=== PATIENT | male | born 1970 | race Caucasian/White ===

== ENCOUNTER 2021-04-29 10:32 | Emergency (ER) | payer OTHER, SELFPAY ==
[2021-04-29 12:31] VITALS: BP 144/94; PULSE 93; RESP 18; TEMP 36.7; O2SAT 98
--- NOTE | 2021-04-29 12:51 | ED.URI ---
HPI - URI/Sore Throat General Chief Complaint: Upper Respiratory Infection Stated Complaint: Sore Throat,Body Aches,Runny Nose Time Seen by Provider: 04/29/21 12:52 Source: patient Mode of arrival: ambulatory Limitations: no limitations History of Present Illness HPI Narrative: Katherin is a 51-year-old male patient who has a 4-day history of sore throat and swollen lymph nodes. Patient does have a history of strep. Last strep diagnosis was 2 years ago. Patient has had a negative rapid Covid this week he has also had a negative Covid PCR. Patient states the sore throat is worse in the morning. He also complains of body aches. MD elicited complaint: sore throat Related Data Allergies Allergy/AdvReac Type Severity Reaction Status Date / Time No Known Allergies Allergy Verified 04/29/21 12:57 Review of Systems Review of Systems: CONSTITUTIONAL: + body aches, denies fever, chills, or sweats. EYES: Denies visual changes, redness, or discharge. ENT: Denies rhinorrhea, congestion,+ sore throat, denies otalgia. CARDIOVASCULAR: Denies chest pain, palpitations, or edema. RESPIRATORY: Denies cough or dyspnea. GASTROINTESTINAL: Denies abdominal pain, nausea, vomiting, or diarrhea. GENITOURINARY: Denies dysuria or hematuria. SKIN: Denies rash, itching, or wounds. MUSCULOSKELETAL: Denies back pain, joint pain, or myalgia. NEUROLOGIC: Denies headache, numbness, tingling, or weakness. PSYCH: Denies depression or anxiety. All systems reviewed & are unremarkable except as noted in HPI and below PMFSH Comments At time of signature, I have reviewed and agree with nursing past medical, surgical, social and family history unless otherwise noted. Please see nursing chart for further information. There is no relevant family history pertinent to the presenting complaint Exam Narrative: GENERAL: Well-appearing, well-nourished, and in no acute distress. HEAD: Normocephalic, atraumatic. EYES: EOMI. No redness or drainage. Conjunctivae normal. ENT: Mucous membranes pink and moist. Nares clear. No rhinorrhea. TMs normal bilaterally. Posterior pharynx is erythemic with moderate edema tonsils are 3-4+. No exudate is noted throat normal. Uvula midline. NECK: Normal AROM. Supple. Anterior cervical lymphadenopathy. CHEST: No respiratory distress. Clear to auscultation. . ABDOMEN: Soft, nontender, nondistended, normal active bowel sounds. MUSCULOSKELETAL: No bony tenderness. EXTREMITIES: Normal range of motion. No edema. SKIN: Warm, dry, no rash. Capillary refill normal. Normal skin turgor. NEURO: No focal deficits. Alert and oriented x3. Gait steady. PSYCH: Normal affect. No signs of depression or anxiety. Course Vital Signs Vital signs: Vital Signs Temperature 36.7 C 04/29/21 12:31 Pulse Rate 93 04/29/21 12:31 Respiratory Rate 18 04/29/21 12:31 Blood Pressure 144/94 H 04/29/21 12:31 Pulse Oximetry 98 04/29/21 12:31 Temperature 36.7 C 04/29/21 12:31 Pulse Rate 93 04/29/21 12:31 Respiratory Rate 18 04/29/21 12:31 Blood Pressure 144/94 H 04/29/21 12:31 Pulse Oximetry 98 04/29/21 12:31 At time of signature, I have reviewed and agree with nursing past medical, surgical, social and family history unless otherwise noted. Please see nursing chart for further information. There is no relevant family history pertinent to the presenting complaint MDM - URI/Sore Throat MDM Narrative Medical decision making narrative: Rapid strep is negative. Throat culture will be sent to lab. Influenza A/B are negative. Differential Diagnosis Differential diagnosis: Likely upper respiratory infection, sinusitis, influenza and pharyngitis Lab Data Labs: Influenza A Screen Negative Reference Range: Negative Influenza B Screen Negative Reference Range: Negative Strep Screen Presump
== END 2021-04-29 13:33 | disposition home or self-care (01) ==
PROVIDERS: Emergency Provider Nurse Practitioner Family; PCP Family Medicine
DX: J02.9 Acute pharyngitis, unspecified (principal)
CPT/HCPCS: 87081; 87804; 87880; 99213; G0463

== ENCOUNTER 2025-01-08 16:14 | Emergency (ER) | payer OTHER, SELFPAY ==
--- OUTSIDE RECORDS SUMMARY | 2024-04-12 16:30 | XMS_ITS ---
Author Organization [facility] Address [address] [id number] Care Team Providers Care Heater Installer Name Role Phone Curtis Rogers Primary Care Provider Timothy Christianson Unavailable [phone] Migration, Provider Unavailable Unavailable REASON FOR VISIT Multum To Medispan Conversion Encounter Medications Medication SIG (Take, Route, Frequency, Duration) Notes Start Date End Date Status DermOtic 0.01 % 5 gtt left ear 2 times a day; Duration: 10 days 02/14/2021 Active Hydrocortisone-Acet ic Acid 1-2 % 4 gtt left ear tid; Duration: 10 days 02/14/2021 Active DECADRON OPTHALMIC SOLUTION 0.1% 5 GTTS LEFT EAR ONCE A DAY; Duration: 10 DAYS *Please review for potential replacement for e-prescription and drug interaction check* 02/14/2021 Active Encounters Encounter Location Date Provider Diagnosis [facility] [address] [id number] 04/12/2024 Provider Migration Plan Of Treatment No Information Progress Notes * Stephane ACOSTA LDOB:1970 (54 yo M)Acc No.[id number]:04/12/2024 Patient: Stephane WOODRUFF Provider: Jose M taylor Migration :1970 A ge:54 Y S ex:Male Date:04/12/2024 [facility] [facility] [address] [facility] Pcp:Curtis Rogers Subjective: * Chief Complaints: * 1 . Multum To Medispan Conversion Encounter. * Medical History: * Medications: T aking DECADRON OPTHALMIC SOLUTION 0.1% SOLUTION 5 GTTS LEFT EAR ONCE A DAY , Notes to Pharmacist: *Please review for potential replacement for e-prescription and drug interaction check*, Taking Hydrocortisone-Acetic Acid 1-2 % Solution 4 gtt left ear tid , Taking DermOtic 0.01 % Oil 5 gtt left ear 2 times a day Objective: * Vitals: * Physical Examination: Assessment: Plan: * Treatment: * Images: * Electronic signature of Jose C fernández Migration on 01/08/2025 at 04:53 PM CDT Sign off status: Pending * Provider: Jose M taylor Migration Date: 1 06/13/2023 Generated for Carlota phillips/Светлана/George on: 0 01/08/2025 04:53 PM CDT
[2025-01-08] VITALS (7 sets, daily range): BP systolic 109–146; BP diastolic 78–110; PULSE 81–103; RESP 16–20; TEMP 36.5–36.7; O2SAT 95–99
--- NOTE | ~2025-01-08 | XR_ITS ---
EXAMINATION: XR chest 2V 01/08/2025 16:56 INDICATION: Shortness of breath TECHNIQUE:Frontal and lateral images of the chest were obtained. COMPARISON: 08/22/2017 FINDINGS: The lungs are clear. The cardiomediastinal silhouette is within normal limits. There are no pleural effusions. There is no pneumothorax suspected. IMPRESSION: 1: NO ACUTE CARDIOPULMONARY DISEASE. Reviewed, dictated and finalized at location Q.
--- NOTE | 2025-01-08 16:45 | ECG_ITS ---
Test Date: 2025-01-08 17:12:44 Measurements Intervals [place] Rate: 95 P: 48 IA: 185 QRS: -44 QRSD: 97 T: 59 QT: 339 QTc: 427 Interpretive Statements SINUS RHYTHM POSSIBLE LEFT ATRIAL ENLARGEMENT [-0.1mV P-WAVE IN V1/V2] LEFT AXIS DEVIATION [QRS AXIS < -30] PROBABLE INFERIOR MYOCARDIAL INFARCTION , OF INDETERMINATE AGE [35 ms Q WAVE IN II/aVF] No previous ECG available for comparison Electronically Signed On 01-09-2025 15:14:36 CDT by Sundar Moses M.D.
--- OUTSIDE RECORDS SUMMARY | 2025-01-08 16:54 | XMS_ITS | Encounter Summary ---
Author Organization [facility] Healthcare Address [address] [place] [address] Care Team Providers Care Forging Engineer Name Role Phone Curtis Rogers DO Primary Care Provider [phone] Trey Birggs DO Unavailable Cipriano Raygoza MD Unavailable [phone] Encounter Details Date Type Department Care Team (Late st Contact Info) Description 12/15/2024 Results Follow-Up [facility] Pulmonary at [address] [place] [address] Casimiro Wilson DO [address] [place] [address] [address] [place] [address] CT Chest High Resolution WO Contrast Social History Tobacco Use Types Packs/Day Years Used Date Smoking Tobacco: Never Smokeless Tobacco: Never Alcohol Use Standard Drinks/Week Comments Never 0 (1 standard drink = 0.6 oz pur e alcohol) AUDIT-C Answer Date Recorded Frequency of Alcohol Consumption Not on file 12/09/2024 Q2: How many drinks containi ng alcohol do you have on a typical day when you are drinking? 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
--- OUTSIDE RECORDS SUMMARY | 2025-01-08 16:54 | XMS_ITS | Encounter Summary ---
Author Organization [facility] Healthcare Address [address] [place] [address] Care Team Providers Care Spooler Operator Name Role Phone Curtis Rogers DO Primary Care Provider [phone] Trey Briggs DO Unavailable [phone] Cipriano Raygoza MD Unavailable [phone] Encounter Details Date Type Department Care Team (Late st Contact Info) Description 11/11/2024 Results Follow-Up [facility] Medical [facility] Pulmonary at [address] [place] [address] Casimiro Wilson DO [address] [place] [address] [address] [place] [address] D-dimer, quantitative, Pro B-type natriuretic peptide, Basic metabolic panel, Additional followed-up results: 4 Social History Tobacco Use Types Packs/Day Years Used Date Smoking Tobacco: Never Smokeless Tobacco: Never Alcohol Use Standard Drinks/Week Comments Never 0 (1 standard drink = 0.6 oz pur e alcohol) AUDIT-C Answer Date Recorded Frequency of Alcohol Consumption Never 09/06/2018 Average Number of Drinks Not on file 019 Frequency of Binge Drinking Not on file 08/28 Sex and Gender Information Value Date Recorded Sex Assigned at Not on file 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
--- OUTSIDE RECORDS SUMMARY | 2025-01-08 16:54 | XMS_ITS | Patient Health Record ---
Author Organization [facility] Address [address] [place], [place] [id number] Care Team Providers Care Mathematics Lecturer Name Role Phone Curtis Rogers Primary Care Provider UnavailTimothy Chiu Unavailable [phone] Migration, Provider Unavailable Unavailable Allergies No Known Allergies Reason For Referral No Information Medications Medication SIG (Take, Route, Frequency, Duration) [...] e-prescription and drug interaction check* 02/14/2021 Active Problems Problem Type SNOMED Code ICD Code Onset Dates Problem Status W/U Status Risk Notes Problem Sensorineural hearing loss of bilateral ears (disorder) (828209048) Sensorineural hearing loss, bilateral (H90.3) Active confirmed Problem Acute eczematoid otitis externa, left ear (H60.542) Active confirmed Problem Deviated nasal septum (017621003) Deviated nasal septum (J34.2) Active confirmed Problem Gastroesophageal reflux disease with esophagitis (disorder) (573447023) Gastro-esophagea l reflux disease with esophagitis, without bleeding (K21.00) Active confirmed Encounters Encounter Location Date Provider Diagnosis [facility] [address] [place], [place] [id number] 04/12/2024 Provider Migration Plan Of Treatment No Information Insurance Providers Payer Name Payer Address Payer Phone Subscriber Number Group Number Insured Name Patient Relationship to Insured Coverage Start Date Coverage End Date [employer] [address] [place] [address] [id number] Stephane Acosta Self - patient is the insured Medical (General) History Medical History History ICD Code daron,gerd Pertinent Medical History: Ear problems, Surgical History Surgery Date(Month/Year) knee,riki sims
--- OUTSIDE RECORDS SUMMARY | 2025-01-08 16:54 | XMS_ITS | Clinical Summary ---
Author Organization [facility] [address] Address [address] [place] [address] Care Team Providers Care Line Maintainer Section Name Role Phone Curtis Rogers DO Primary Care Provider [phone] Trey Briggs DO Unavailable Cipriano Raygoza MD Unavailable [phone] Allergies No known active allergies Medications citalopram (CeleXA) 20 mg tablet Take 20 mg by mouth daily Active acetaminophen (TYLENOL) 500 mg tabletIndicatio ns:Pain Take 500-1,000 mg by mouth every 6 (six) hours as needed for pain Active peppermint oil (IBGARD ORAL) Take 1 tablet by mouth 2 (two) times a day as needed Active UNABLE TO FIND - ENTER DRUG NAME IN NOTES TO PHARMACY Take 1 each by mouth 2 (two) times a day as needed Med Name: FD Bull Active HYDROcodone-merry taminophen (NORCO) 5-325 mg per tabletIndicatio ns:Pain Take 1-2 tablets by mouth every 4 (four) hours as needed for pain 40 tablet 9 Active Additional Information Patient not taking.Reported on 12/09/2024 albuterol HFA (PROVENTIL HFA,VENTOLIN HFA,PROAIR HFA) 90 mcg/actuation inhalerIndicati ons:Shortness of breath on exertion Inhale 2 puffs every 4 (four) hours as needed for wheezing or shortness of breath 1 each 5 Active cetirizine (ZyrTEC) 10 mg tablet Take 1 tablet (10 mg total) by mouth daily Active inhalational spacing device spacer 1 each daily 1 each 5 Active budesonide-form oteroL (SYMBICORT) 160-4.5 mcg/actuation inhaler Inhale 2 puffs 2 (two) times a day Rinse mouth with water after use. Do not swallow. 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 09/11/2018 Overview (09/11/2018): Added automatically from request for surgery [id number] Calculus of gallbladder with cholecystitis 09/07 Abdominal pain 09/06/2018 Overview (09/08/2018): Added automatically from request for surgery [id number] Resolved Problems Problem Noted Date Diagnosed Date Resolved Date Lower abdominal pain 09/07/2018 019 Encounters Date Type Department Care Team Description 12/15/2024 Results Follow-Up [facility] Pulmonary at [address] [phone] Chest High Resolution WO Contrast 12/09/2024 8:30 AM CDT Office Visit [facility] Pulmonary at [address] [phone] Casimiro Wilson DO Shortness of breath (Primary Dx); Chronic rhinitis 12/05/2024 3:58 PM CDT - 12/05/2024 11:59 PM CDT Hospital Encounter [facility] [address] [place] [address] Restrictive lung disease Discharge Disposition: Discharge to home or self care 12/04/2024 Telephone [facility] [address] [place] [address] Lianet Lechuga 11/19/2024 7:08 AM CDT - 11/19/2024 11:59 PM CDT Hospital Encounter [facility] [address] [place] [address] Shortness of breath on exertion Discharge Disposition: Discharge to home or self care 11/11/2024 Results Follow-Up [facility] Pulmonary at [address] [address] Casimiro Wilson, D-dimer, quantitative, Pro B-type natriuretic peptide, Basic metabolic panel, Additional followed-up results: 4 11/10/2024 11:30 AM CDT Lab [address] Shortness of breath on exertion 11/10/2024 11:00 AM CDT Office Visit [facility] Pulmonary at [address] [place] [phone] Casimiro Wilson, Shortness of breath on exertion 10/21/2024 10:45 AM CDT Office Visit [facility] Convenient Care at [address] [phone] Elizabeth Valdez NP Shortness of breath on exertion (Primary Dx) 10/10/2024 2:25 PM CDT Ancillary Procedure [facility] Outside Films from Last 3 Months Surgical History Surgery Date Site/Laterality Comments KNEE ARTHROSCOPY Right HAND SURGERY Right Medical History Medical History Date Comments Gallbladder calculus IBS (irritable bowel syndrome) Social History Tobacco Use Types Packs/Day Years [...] on file Legal 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 Gender Identity Not on file Sexual Orientation Not on file Obstetrics History Last Filed Vital Signs Vital Sign Reading Time Taken Comments Blood Pressure 112/82 12/09/2024 8:25 AM CDT Pulse 72 12/09/2024 8:25 AM CDT Temperature 36.7 C (98 F) 12/09/2024 8:25 AM CDT Respiratory Rate 16 12/09/2024 8:25 AM CDT Oxygen Saturation 98% 12/09/2024 8:25 AM CDT Inhaled Oxygen Concentration - - Weight 92.8 kg (204 lb 9.6 oz) 12/09/2024 8:25 A M CDT Height 182.9 cm (6' 0.01) 12/09/2024 8:25 AM CD T Body Mass Index 27.74 12/09/2024 8:25 AM CDT Plan of Treatment Health Maintenance Due Date Last Done Comments Depression Screening 1970 Hepatitis C Screening 1970 Prostate Cancer Screening-PSA 1970 Hepatitis B Screening 1987 Regular Well Visit/Exam 18-64 1987 DTaP/Tdap/Td Vaccine (2 - Td or Tdap) 11/04/2022 11/04/2012 Influenza Vaccine (#1) 2024 03/01/2013 Colon Cancer Screening-Colonoscopy 09/09/2028 09/09/2018 Colon Cancer Screening-CT Colonography Discontinued 09/09/2018 Colon Cancer Screening-DNA Stool Discontinued 09/09/2018 Colon Cancer Screening-FIT Discontinued 09/09/2018 Colon Cancer Screening-Sigmoidoscopy Discontinued 09/09/2018 Zoster Vaccine Completed 05/30/2024, 02/25/2024 Pneumococcal vaccine <65 Aged Out No longer eligible based on patient's age to complete this topic Procedures Procedure Name Priority Date/Time Associated Diagnosis Comments CT CHEST HIGH RESOLUTION WO CONTRAST Schedule Routine, Read Routine (OP Routine) 12/05/2024 4:12 PM CDT Restrictive lung disease PULMONARY FUNCTION TEST (PFT) Routine 11/19/2024 7:33 AM CDT Shortness of breath on exertion EGFR Routine 11/10/2024 11:32 AM CDT Shortness of breath on exertion DIFFERENTIAL AUTO Routine 11/10/2024 11: 32 AM CDT Shortness of breath on exertion CBC WITH AUTO DIFFERENTIAL Routine 11/10/2024 11:32 AM CDT Shortness of breath on exertion TSH Routine 11/10/2024 11:32 AM CDT Shortness of breath on exertion BASIC METABOLIC PANEL Routine 11/10/2024 11:32 AM CDT Shortness of breath on exertion PRO B-TYPE NATRIURETIC PEPTIDE Routine 11/10/2024 11:32 AM CDT Shortness of breath on exertion D-DIMER, QUANTITATIVE Routine 11/10/2024 11:32 AM CDT Shortness of breath on exertion XR TRANSFER OF OUTSIDE FILMS Routine 10/10/2024 2:25 PM CDT COLONOSCOPY 09/09/2018 12:37 PM CDT from Last 3 Months or Most Recently Relevant to Health Maintenance Results * CT Chest High Resolution WO Contrast (12/05/2024 4:12 PM CDT) Anatomical Region Laterality Modality Chest N/A Computed Tomogra phy 12/15/2024 11:5 5 AM CDT Narrative 12/15/2024 12:02 PM CDT EXAM DESCRIPTION: CT CHEST HIGH RESOLUTION WO CONTRAST REASON FOR STUDY: Dyspnea, chronic, Restrictive lung disease Chronic s.o.b. that has been going on for 2 - 3 months Wakes up in the middle of the night not being able to breath TECHNIQUE: CT scan of the chest performed without intravenous contrast using helical scanning technique. Inspiratory and expiratory images were acquired. Prone inspiratory images were acquired. Reconstructed coronal and sagittal MPR images reviewed. All images stored on PACS. Automated exposure control was used as a dose optimization technique for this examination. COMPARISON: None. REFERENCE: Per ACR white paper recommendations, unless otherwise specified no follow-up imaging is recommended for incidental renal and adrenal lesions per consensus recommendations based on imaging criteria. Further lab evaluation could be pursued based on clinical findings. FINDINGS: HARDWARE/LINES/TUBES: None. VASCULATURE: No thoracic aortic aneurysm. MEDIASTINUM/HEART: Normal heart size. Unremarkable esophagus. CORONARY ARTERY CALCIFICATION: No significant coronary atherosclerotic calcifications. LYMPH NODES: No pathologically enlarged thoracic lymphadenopathy. AIRWAY/LUNGS/PLEURA: Lung Volumes: Normal. Reticulation: Absent. Traction Bronchiectasis: Absent. Honeycombing: Absent. Nodularity: Absent. Cysts: Absent Ground-glass Opacities: Absent Consolidation: Absent. Mosaic Attenuation/Air Trapping: Absent Axial Distribution: Not applicable. Zonal Distribution: Not applicable. Network Operations Analyst Time: Baseline examination (or all prior imaging very recent). Complications: None. Other: Small pulmonary nodules including 4 mm perifissural nodule along the left oblique fissure likely a fissural lymph node (3; 41). 3 mm anterior right middle lobe pulmonary nodule (3; 48). No focal consolidation, pneumothorax, or pleural effusion. Central airways grossly patent. UPPER ABDOMEN: Status post cholecystectomy. Mild splenomegaly measuring 13.8 cm. No definite acute abnormality within the visualized abdomen. BONES/SOFT TISSUES: No significant abnormality. Normal-appearing thyroid. IMPRESSION: 1. No evidence of interstitial lung disease. No acute findings in the chest. 2. Small pulmonary nodules measuring up to 4 mm. Recommendations as below. Per Fleischner Society Guidelines, no follow-up needed if patient is low-risk (and has no known or suspected primary neoplasm). Non-contrast chest CT can be considered in 12 months if patient is high-risk. 3. Mild splenomegaly. THIS IS AN ELECTRONICALLY VERIFIED FINAL REPORT 12/15/2024 12:02 PM - Electronically signed by Addy Gastelum M.D. NS: NS Report ID: [id number] Reading Location: [id number] Procedure Note Addy Gastelum MD - 12/15/2024 EXAM DESCRIPTION: CT CHEST HIGH RESOLUTION WO CONTRAST REASON FOR STUDY: Dyspnea, chronic, Restrictive lung disease Chronic s.o.b. that has been going on for 2 - 3 months Wakes up in themiddle of the night not being able to breath TECHNIQUE: CT scan of the chest performed without intravenous contrastusing helical scanning technique. Inspiratory and expiratory images wereacquired. Prone inspiratory images were acquired. Reconstructed coronal andsagittal MPR images reviewed. All images stored on PACS. Automated exposurecontrol was used as a dose optimization technique for this examination. COMPARISON: None. REFERENCE: Per ACR white paper recommendations, unless otherwise specifiedno follow-up imaging is recommended for incidental renal and adrenal lesionsper consensus recommendations based on imaging criteria. Further labevaluation could be pursued based on clinical findings. FINDINGS: HARDWARE/LINES/TUBES: None. VASCULATURE: No thoracic aortic aneurysm. MEDIASTINUM/HEART: Normal heart size. Unremarkable esophagus. CORONARY ARTERY CALCIFICATION: No significant coronary atherosclerotic calcifications. LYMPH NODES: No pathologically enlarged thoracic lymphadenopathy. AIRWAY/LUNGS/PLEURA: Lung Volumes: Normal. Reticulation: Absent. Traction Bronchiectasis: Absent. Honeycombing: Absent. Nodularity: Absent. Cysts: Absent Ground-glass Opacities: Absent Consolidation: Absent. Mosaic Attenuation/Air Trapping: Absent Axial Distribution: Not applicable. Zonal Distribution: Not applicable. Network Operations Analyst Time: Baseline examination (or all prior imaging veryrecent). Complications: None. Other: Small pulmonary nodules including 4 mm perifissural nodule alongthe left oblique fissure likely a fissural lymph node (3; 41). 3 mm anterior right middle lobe pulmonary nodule (3; 48). No focal consolidation, pneumothorax, or pleural effusion. Central airways grossly patent. UPPER ABDOMEN: Status post cholecystectomy. Mild splenomegaly [id number] cm. No definite acute abnormality within the visualized abdomen. BONES/SOFT TISSUES: No significant abnormality. Normal-appearingthyroid. IMPRESSION: 1. No evidence of interstitial lung disease. No acute findings in thechest. 2. Small pulmonary nodules measuring up to 4 mm. Recommendations asbelow. Per Fleischner Society Guidelines, no follow-up needed if patient islow-risk (and has no known or suspected primary neoplasm). Non-contrast chest CTcan be considered in 12 months if patient is high-risk. 3. Mild splenomegaly. THIS IS AN ELECTRONICALLY VERIFIED FINAL REPORT 12/15/2024 12:02 PM - Electronically signed by Addy Gastelum M.D. NS: NS Report ID: [id number] Reading Location: [id number] Casimiro Wilson DO IMG CT PROCEDURES Final R esult * Pulmonary Function Test - (11/19/2024 7:33 AM CDT) Anatomical Region Laterality Modality PFT 11/19/2024 7:11 AM CDT Narrative 11/21/2024 11:18 AM CDT PFT INTERPRETATION Spirometry: Normal There is no significant response to bronchodilator administration. This does not preclude the use of bronchodilator therapy if clinically indicated. Flow volume loop: Normal/unrevealing Lung volumes: Moderate restriction. Severe decrease in ERV DLCO: Mild diffusion impairment Electronically signed by Rabia High MD Casimiro Wilson DO PFT ORDERABLES Final Res ult * eGFR (11/10/2024 11:32 AM CDT) eGFR >90 >=60 mL/min/1. 73 m2 Comment: Interpretive Data Reference Interval Normal >/= 90 mL/min/1.73m2 Mildly decreased* 60 - 89 mL/min/1.73m2 Mildly to moderately decreased 45 - 59 mL/min/1.73m2 Moderately to severely decreased 30 - 44 mL/min/1.73m2 Severely decreased 15 - 29 mL/min/1.73m2 Kidney Failure < 15 mL/min/1.73m2 *Relative to young adult level Estimated glomerular filtration rate is determined by the 2020 CKD-EPI equation recommended by the National Kidney Foundation (A Unifying Approach to GFR Estimation: Recommendations of the NKF-ASK Task Force on Reassessing the Inclusion of Race in Diagnosing Kidney Disease, JASN 2020). The CKD-EPI equation should not be used for patients with unstable renal function and has not been validated in children and those over 70. Current interpretive data was last reviewed 2021. Blood 11/10/2024 11:3 2 AM CDT 11/10/2024 1:19 PM CDT Casimiro Wilson DO LAB BLOOD ORDERABLES Allyson l Result [facility] Department [place] [address] * Differential, auto (11/10/2024 11:32 AM CDT) Neutrophil abs 2.90 1.50 - 6.50 K/cumm Imm gran abs 0.02 0.00 - 0.10 K/cumm [facility] ([place]) Lymphocyte abs 1.64 0.80 - 3.30 K/cumm [facility] ([place]) Monocyte abs 0.38 0.20 - 0.80 K/cumm [facility] ([place]) Eosinophil abs 0.11 0.00 - 0.50 K/cumm [facility] ([place]) Basophil abs 0.05 0.00 - 0.10 K/cumm [facility] ([place]) Neutrophil pct 56.7 % [facility] ([place]) Comment: Interpretive Data Percent cell count reference ranges are not reported, since discordance with absolute values may lead to misinterpretation of CBC data. Current Interpretive Data was last revised on 2017. Imm gran pct 0.4 % [facility] ([place]) Comment: Interpretive Data Percent cell count reference ranges are not reported, since discordance with absolute values may lead to misinterpretation of CBC data. Current Interpretive Data was last revised on 2017. Lymphocyte pct 32.2 % [facility] ([place]) Comment: Interpretive Data Percent cell count reference ranges are not reported, since discordance with absolute values may lead to misinterpretation of CBC data. Current Interpretive Data was last revised on 2017. Monocyte pct 7.5 % [facility] ([place]) Comment: Interpretive Data Percent cell count reference ranges are not reported, since discordance with absolute values may lead to misinterpretation of CBC data. Current Interpretive Data was last revised on 2017. Eosinophil pct 2.2 % [facility] ([place]) Comment: Interpretive Data Percent cell count reference ranges are not reported, since discordance with absolute values may lead to misinterpretation of CBC data. Current Interpretive Data was last revised on 2017. Basophil pct 1.0 % [facility] ([place]) Comment: Interpretive Data Percent cell count reference ranges are not reported, since discordance with absolute values may lead to misinterpretation of CBC data. Current Interpretive Data was last revised on 2017. Blood 11/10/2024 11:3 2 AM CDT 11/10/2024 1:19 PM CDT Casimiro Sanchez Wilson DO LAB BLOOD ORDERABLES Allyson l Result Performing Organization Address City/[facility] [address]/ZIP Co de Phone Number [facility] [place]) 1 [facility] [place] [address] * Pro B-type natriuretic peptide (11/10/2024 11:32 AM CDT) NT-proBNP <36 <=300 pg/mL Comment: Interpretive Comments: A. Dyspnea in Acute Care Setting All Ages: < 300 pg/ml, acute heart failure unlikely. < 50 yrs: 300 - 450 pg/ml, further investigation warranted. > 450 pg/ml, acute heart failure likely. 50 - 74 yrs: 300 - 900 pg/ml, further investigation warranted. > 900 pg/ml, acute heart failure likely . > or = 75 yrs: 450 - 1800 pg/ml, further investigation warranted. > 1800 pg/ml, acute heart failure likely. B. Non-acute Setting < 75 yrs < 125 pg/ml, rules out heart failure. > or = 125 pg/ml, further investigation warranted. > or = 75 yrs < 450 pg/ml, rules out heart failure. > or = 450 pg/ml, further investigation warranted. - Knowledge of each individual patient's NT-proBNP range may be more useful than using similar cut-points for every patient. Please note that marked elevations in NT-proBNP levels may be observed in state other than Left Ventricular Congestive Failure, including: acute coronary syndromes, right heart strain/failure (including pulmonary embolism and cor pulmonale), critical illness, renal failure, as well as advanced age. - References: 1. Moris BRUCE et.al. Eur Heart J. 2006:27:330-337. 2. Chase RW, Cordell ISAACS. J. AM Oralia Cardiol: Cardiovasc Imag. 2009;2: 216- 225. Interpretive Data Last Revised Date: 2017. Blood 11/10/2024 11:3 2 AM CDT 11/10/2024 1:19 PM CDT Casimiro Bradford Wilson DO LAB BLOOD ORDERABLES Allyson l Result Performing Organization Address [facility] [address]/ZIP Co de Phone Number [facility] ([place]) 1 [facility] Department [place] [address] * CBC with auto differential (11/10/2024 11:32 AM CDT) Pathologist [facility] WBC 5.10 3.80 - 9.90 K/cumm Hgb 15.5 13.0 - 17.5 g/dL [facility] ([place]) Hct 46.3 38.9 - 50.3 % [facility] ([place]) Plt 174 150 - 400 K/cumm [facility] ([place]) MPV 11.8 9.1 - 12.3 fL [facility] ([place]) RBC 5.20 4.30 - 5.80 M/cumm [facility] ([place]) MCV 89.0 81.3 - 96.4 fL [facility] ([place]) MCH 29.8 27.1 - 33.3 pg [facility] ([place]) MCHC 33.5 32.3 - 35.7 g/dL [facility] RDW CV 12.6 11.1 - 14.9 % [facility] RDW SD 41.3 35.7 - 48.1 fL [facility] ([place]) NRBC abs 0.00 0.00 - 0.01 K/cumm [facility] ([place]) Blood 11/10/2024 11:3 2 AM CDT 11/10/2024 1:19 PM CDT Casimiro Wilson DO LAB BLOOD ORDERABLES Allyson l Result [facility] 1 [facility] Department [place] [address] * D-dimer, quantitative (11/10/2024 11:32 AM CDT) [facility] D-Dimer 437 <=499 ng/mL FEU [facility] ([place]) Comment: Interpretive data FDA approved the D-dimer, in conjunction with a low or moderate pretest probability score, to exclude venous thromboembolic events (VTE) (PE and DVT) in outpatients when the D-dimer result is < 500 ng/ml FEU. Evidence supports using an age-adjusted D-dimer cut-off for outpatients older than 50 (age x 10) to improve specificity without sacrificing sensitivity. Example: age 68, VTE cut-off 680 ng/ml FEU. References; Schoutromelia HT et al. Brit Med J. 2013;346:f2492. Alvina WONG et al. Annals Int Med. 2015;163:701-11. Current interpretive data was last revised on 2019. Blood 11/10/2024 11:3 2 AM CDT 11/10/2024 1:19 PM CDT [facility] Sanchez Wilson LAB BLOOD ORDERABLES Allyson l Result [facility] ([place]) 1 [facility] [place] [address] * TSH (11/10/2024 11:32 AM CDT) Thyroid Stimulating Hormone 2.21 0.30 - 4.20 mcIUnit/mL Blood 11/10/2024 11:3 2 AM CDT 11/10/2024 1:19 PM CDT [facility] Sanchez Wilson LAB BLOOD ORDERABLES Allyson l Result Performing Organization Address City/[facility] [address]/ZIP Co de Phone Number [facility] ([place]) 1 [facility] [place] [address] * (ABNORMAL) Basic metabolic panel (11/10/2024 11:32 AM CDT) Sodium 138 135 - 145 mmol/L Potassium, pl 4.7 3.3 - 4.9 mmol/L [facility] ([place]) Chloride 101 97 - 110 mmol/L [facility] ([place]) CO2 25 22 - 32 mmol/L [facility] ([place]) Anion gap 12 2 - 15 mmol/L [facility] BUN 13 6 - 25 mg/dL [facility] Creatinine 0.78(L) 0.80 - 1.30 mg/dL [facility] ([place]) Glucose 95 70 - 199 mg/dL [facility] ([place]) Comment: Interpretive Data Fasting glucose >/= 126 mg/dl is diagnostic for diabetes. Fasting is defined as no caloric intake for at least 8 hours. Fasting glucose between 100 mg/dl to 125 mg/dl is diagnostic of prediabetes. In a patient with classic symptoms of hyperglycemia or hyperglycemic crisis, a random glucose >/= 200 mg/dl is diagnostic for diabetes. In the absence of unequivocal hyperglycemia, results should be confirmed by repeat testing. The classification and Diagnosis of Diabetes Diabetes Care 2021; 46: S19-S40. Current interpretive data was last revised 2022. Calcium 9.5 8.5 - 10.3 mg/dL [facility] ([place]) Blood 11/10/2024 11:3 2 AM CDT 11/10/2024 1:19 PM CDT us Casimiro Wilson DO LAB BLOOD ORDERABLES Allyson l Result Performing Organization Address City/[facility] [address]/ZIP Co de Phone Number [facility] ([place]) 1 [facility] Department [place] [address] * XR Outside Reference (10/10/2024 2:25 PM CDT) Narrative [facility] - 11/07/2024 3:48 PM CDT This order has been auto-finalized and does not contain a result. us Not In File Miscellaneous IMG XR PROCEDURES Allyson l Result Performing Organization Address [facility] [address]/ZIP Co de Phone Number [facility] * COLONOSCOPY (09/09/2018 12:37 PM CDT) Anatomical Region Laterality Modality Other Narrative Procedure Note Heriberto Kelley MD - 09/09/2018 12:37 PM CDT ENDOSCOPY LAB Patient Name: Pedro Michelle Procedure Date: 09/09/2018 12:37 PM Admit Type: Inpatient Room: [facility] 3 Date of : 1970 Instrument Name: -[id number] Gender: Male Note Status: Finalized Procedure: Colonoscopy Indications: This is the patient's first colonoscopy, Generalized abdominal pain Providers: Heriberto Kelley MD Referring MD: Curtis Rogres DO, Evert Long M.D., Becca Genao PA-C Medicines: Propofol per Anesthesia Complications: No immediate complications. Estimated Blood Loss: Estimated blood loss was minimal. Procedure: Pre-Anesthesia Assessment: - Prior to the procedure, a History and Physical was performed, and patient medications and allergies were reviewed. The patient is competent. The risks andbenefits of the procedure and the sedation options and riskswere discussed with the patient. All questions were answered and informed consent was obtained. Patientidentification and proposed procedure were verified by the physician,the nurse and the anesthesiologist in the procedure room. Mental Status Examination: alert and oriented. Airway Examination: normal oropharyngeal airway and neck mobility. Respiratory Examination: clear toauscultation. CV Examination: normal. Prophylactic Antibiotics: The patient does not require prophylactic antibiotics.Prior Anticoagulants: The patient has taken no previous anticoagulant or antiplatelet agents. ASA Grade Assessment: II - A patient with mild systemic disease. After reviewing the risks and benefits, the patient was deemed in satisfactory condition to undergo theprocedure. The anesthesia plan was to use monitored anesthesiacare (MAC). Immediately prior to administration ofmedications, the patient was re-assessed for adequacy to receive sedatives. The heart rate, respiratory rate, oxygen saturations, blood pressure, adequacy of pulmonary ventilation, and response to care were monitored throughout the procedure. The physical status of the patient was re-assessed after the procedure. - The risks and benefits of the procedure and thesedation options and risks were discussed with the patient. All questions were answered and informed consent wasobtained. The benefits, risks and alternatives of the procedureand sedation were discussed and informed consent wasobtained. All questions were answered. Please refer to the signed informed consent document in the medical record. Thescope was passed under direct vision. The Colonoscope was introduced through the anus and advanced to the the terminal ileum. The colonoscopy was performed without difficulty. The patient tolerated the procedure well.The quality of the bowel preparation was adequate. Thequality of the bowel preparation was evaluated using the BBPS ([place] Bowel Preparation Scale) with scores of: Right Colon = 3 (entire mucosa seen well with no residual staining, small fragments of stool or opaque liquid), Transverse Colon = 3 (entire mucosa seen well with no residual staining, small fragments of stool or opaque liquid) and Left Colon = 3 (entire mucosa seen wellwith no residual staining, small fragments of stool oropaque liquid). The total BBPS score equals 9. The quality ofthe bowel preparation was good. The bowel preparation usedwas GoLYTELY. Bowel prep was administered using a splitdose. Findings: The terminal ileum appeared normal. Biopsies were taken with a cold forceps for histology. The entire examined colon appeared normal on direct and retroflexion views. Biopsies were taken with a cold forceps in the rectum, in thetransverse colon, in the ascending colon and in the cecum for histology. Impression: - The examined portion of the ileum was normal.Biopsied. - The entire examined colon is normal on direct and retroflexion views. - Biopsies were taken with a cold forceps for histologyin the rectum, in the transverse colon, in the ascending colon and in the cecum. Recommendation: - [facility]. - Clear liquid diet. - Further management/workup per GI consult service. - Await pathology results. - Repeat colonoscopy in 10 years for screeningpurposes. Attending Participation: I personally performed the entire procedure. Electronically signed by Heriberto Kelley MD Heriberto Kelley MD 09/09/2018 1:11:47 PM Number of Addenda: 0 Note Initiated On: 09/09/2018 12:37 PM Heriberto Kelley MD ENDOSCOPY PROCEDURES Final Re sult from Last 3 Months or Most Recently Relevant to Health Maintenance Insurance [facility] [employer] OPEN ACCESS Advance Directives For more information, please contact: [phone] * Full Code (Latest Code Status on File) Date Activated Date Inactivated Comments 09/19/2018 2:39 PM 09/20/2018 4:00 PM * Full Code Date Activated Date Inactivated Comments 09/06/2018 11:45 PM 09/09/2018 7:36 PM Care Teams Line Maintainer Section Relationship Specialty Start Date End Date Curtis Rogers DO [address] [place] [address] PCP - General Family Medicine 07/29/17 Trey Briggs DO [address] [place] [address] Consulting Physician Gastroenterology 09/09/18 Cipriano Raygoza MD [address] [place] [address] Consulting Physician General Surgery 09/09/18
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
--- OUTSIDE RECORDS SUMMARY | 2025-01-08 17:36 | XMS_ITS | Clinical Summary ---
Author Organization [facility] [place] [address] Address [address] [place] [address] Care Team Providers Care Patch Press Operator Name Role Phone Curtis Rogers DO Primary Care Provider [phone] Trey Briggs DO Unavailable [phone] Cipriano Raygoza MD Unavailable [phone] Allergies No known active allergies Medications [...] (09/11/2018): Added automatically from request for surgery [id number] Calculus of gallbladder with cholecystitis 09/07 Abdominal pain 09/06/2018 Overview (09/08/2018): Added automatically from request for surgery [id number] Resolved Problems Problem Noted Date Diagnosed Date Resolved Date Lower abdominal pain 09/07/2018 019 Encounters Date Type Department Care Team Description 12/15/2024 Results Follow-Up [facility] Pulmonary at [address] [address] Chest High Resolution WO Contrast 12/09/2024 8:30 AM CDT Office Visit [facility] Pulmonary at [address] [address] Casimiro Wilson DO Shortness of breath (Primary Dx); Chronic rhinitis 12/05/2024 3:58 PM CDT - 12/05/2024 11:59 PM CDT Hospital Encounter [facility] [address] [place] [address] Restrictive lung disease Discharge Disposition: Discharge to home or self care 12/04/2024 Telephone [facility] [address] [place] [address] Lianet Lechuga 11/19/2024 7:08 AM CDT - 11/19/2024 11:59 PM CDT Hospital Encounter [facility] [address] [place] [address] Shortness of breath on exertion Discharge Disposition: Discharge to home or self care 11/11/2024 Results Follow-Up [facility] Pulmonary at [address] [address] Casimiro Wilson, D-dimer, quantitative, Pro B-type natriuretic peptide, Basic metabolic panel, Additional followed-up results: 4 11/10/2024 11:30 AM CDT Lab [address] Shortness of breath on exertion 11/10/2024 11:00 AM CDT Office Visit [facility] Pulmonary at [address] [place] [phone] Casimiro Wilson, Shortness of breath on exertion 10/21/2024 10:45 AM CDT Office Visit [facility] Con[facility]ient Care at [address] [phone] Elizabeth Valdez NP Shortness of breath on [...] on file 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 Zonal Distribution: Not applicable. Tassel Making Machine Operator Time: Baseline examination (or all prior imaging [...] Addy Gastelum M.D. NS: NS Report ID: [id number] [place] Location: [id number] Procedure Note Addy Gastelum MD - 12/15/2024 [...] Distribution: Not applicable. Zonal Distribution: Not applicable. Tassel Making Machine Operator Time: Baseline examination (or all prior imaging veryrecent). Complications: None. Other: Small pulmonary nodules including 4 mm perifissural nodule alongthe left oblique fissure likely a fissural lymph node (3; 41). 3 mm anterior right middle lobe pulmonary nodule (3; 48). No focal consolidation, pneumothorax, or pleural effusion. Central airways grossly patent. UPPER ABDOMEN: Status post cholecystectomy. Mild splenomegaly [id number] cm. No definite acute abnormality within the [...] Addy Gastelum M.D. NS: NS Report ID: [id number] [place] Location: [id number] Casimiro Wilson DO IMG CT PROCEDURES Final [...] BLOOD ORDERABLES Allyson l Result [facility]) 2 [facility] Department [place] [address] * Differential, auto (11/10/2024 11:32 [...] ORDERABLES Allyson l Result Performing Organization Address City/[facility]/ZIP Co de Phone Number [facility]) 1 [facility] [place] [address] * Pro B-type natriuretic peptide (11/10/2024 11:32 [...] ORDERABLES Allyson l Result Performing Organization Address [facility]/ZIP Co de Phone Number [facility] ([place]) 1 [facility] Department [place] [address] * CBC with auto differential (11/10/2024 11:32 AM CDT) Pathologist [facility] WBC 5.10 3.80 - 9.90 K/cumm Hgb 15.5 13.0 - 17.5 g/dL [facility] ([place]) Hct 46.3 38.9 - 50.3 % [facility] ([place]) Plt 174 150 - 400 K/cumm [facility] ([place]) MPV 11.8 9.1 - 12.3 fL [facility] ([place]) RBC 5.20 4.30 - 5.80 M/cumm [facility] ([place]) MCV 89.0 81.3 - 96.4 fL [facility] ([place]) MCH 29.8 27.1 - 33.3 pg [facility] ([place]) MCHC 33.5 32.3 - 35.7 g/dL [facility] ([place]) RDW CV 12.6 11.1 - 14.9 % [facility] ([place]) RDW SD 41.3 35.7 - 48.1 fL [facility] ([place]) NRBC abs 0.00 0.00 - 0.01 K/cumm [facility] ([place]) Blood 11/10/2024 11:3 2 AM CDT 11/10/2024 1:19 PM CDT Casimiro Wilson DO LAB BLOOD ORDERABLES Allyson l Result [facility] ([facility] 1 [facility] Department [place] [address] * D-dimer, quantitative (11/10/2024 11:32 AM CDT) [facility] D-Dimer 437 <=499 ng/mL FEU [facility] ([place]) Comment: Interpretive data FDA [...] 2 AM CDT 11/10/2024 1:19 PM CDT [facility] Sanchez Wilson LAB BLOOD ORDERABLES Allyson l Result [facility] ([facility]) 1 [facility] [place] [address] * TSH (11/10/2024 11:32 AM CDT) Thyroid Stimulating Hormone 2.21 0.30 - 4.20 mcIUnit/mL Blood 11/10/2024 11:3 2 AM CDT 11/10/2024 1:19 PM CDT [facility] Sanchez Wilson LAB BLOOD ORDERABLES Allyson l Result Performing Organization Address City/[facility]/ZIP Co de Phone Number [facility] ([place]) 1 [facility] [place] [address] * (ABNORMAL) Basic metabolic panel (11/10/2024 11:32 AM CDT) Sodium 138 135 - 145 mmol/L Potassium, pl 4.7 3.3 - 4.9 mmol/L [facility] ([place]) Chloride 101 97 - 110 mmol/L [facility] ([place]) CO2 25 22 - 32 mmol/L [facility] ([place]) Anion gap 12 2 - 15 mmol/L [facility] ([place]) BUN 13 6 - 25 mg/dL [facility] ([place]) Creatinine 0.78(L) 0.80 - 1.30 mg/dL [facility] ([place]) Glucose 95 70 - 199 mg/dL [facility] ([facility]) Comment: Interpretive Data Fasting glucose >/= 126 [...] Calcium 9.5 8.5 - 10.3 mg/dL [facility] ([facility]) Blood 11/10/2024 11:3 2 AM CDT 11/10/2024 1:19 PM CDT us Casimiro Wilson DO LAB BLOOD ORDERABLES Allyson l Result Performing Organization Address City/[facility]/ZIP Co de Phone Number [facility] (P[facility]) 1 [facility] Department [place] [address] * XR Outside Reference (10/10/2024 2:25 PM CDT) Narrative [facility] - 11/07/2024 3:48 PM CDT This order has been auto-finalized and does not contain a result. us Not In File Miscellaneous IMG XR PROCEDURES Allyson l Result Performing Organization Address [facility]/ZIP Co de Phone Number [facility] * COLONOSCOPY (09/09/2018 12:37 PM CDT) Anatomical Region Laterality Modality Other Narrative Procedure Note Heriberto Kelley MD - 09/09/2018 12:37 PM CDT ENDOSCOPY LAB Patient Name: Pedro Michelle Procedure Date: 09/09/2018 12:37 PM Admit Type: Inpatient Room: [facility] [address] Date of : 1970 Instrument Name: -[id number] Gender: Male Note Status: Finalized Procedure: Colonoscopy Indications: This is the patient's first colonoscopy, Generalized abdominal pain Providers: Heriberto Kelley MD Referring MD: Curtis Rogers DO, Evert Long M.D., Becca Genao PA-C [...] bowel preparation was evaluated using the BBPS ([place] Bowel Preparation Scale) with scores of: Right [...] Most Recently Relevant to Health Maintenance Insurance [facility] [employer] OPEN ACCESS Advance Directives For more information, please contact: [phone] * Full Code (Latest Code Status on File) Date Activated Date Inactivated Comments 09/19/2018 2:39 PM 09/20/2018 4:00 PM * Full Code Date Activated Date Inactivated Comments 09/06/2018 11:45 PM 09/09/2018 7:36 PM Care Teams Patch Press Operator Relationship Specialty Start Date End Date Curtis Rogers DO [address] [place] [address] PCP - General Family Medicine 07/29/17 Trey Briggs DO [address] [place] [address] Consulting Physician Gastroenterology 09/09/18 Cipriano Raygoza MD [address] [place] [address] Consulting Physician General Surgery 09/09/18
--- OUTSIDE RECORDS SUMMARY | 2025-01-08 17:36 | XMS_ITS | Encounter Summary ---
Author Organization [facility] Address [address] [place] [address] Care Team Providers Care Blood Bank Manager Name Role Phone Curtis Rogers DO Primary Care Provider [phone] Trey Briggs DO Unavailable [phone] Cipriano Raygoza MD Unavailable [phone] Encounter Details Date Type Department Care Team (Late st Contact Info) Description 12/15/2024 Results Follow-Up [facility] Pulmonary at [address] [place] [address] Casimiro Wilson DO [address] [place] [address] [address] [place] [address] CT Chest High Resolution WO [...] on file 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
[2025-01-08 17:40] LABS: Hematocrit 43.7 % (42.0-52.0); Hemoglobin 14.8 g/dL (14.0-18.0); Immature Granulocyte Percent A 0.1 % (0-0.5); Lymphocytes Absolute Auto 2.17 K/mm3 (0.9-3.2); Mean Corpuscular HGB Conc 33.9 g/dl (32-36); Mean Corpuscular Hemoglobin 29.7 pg (26-34); Mean Corpuscular Volume 87.8 fl (80-100); Nucleated Red Blood Cells Absolute Auto 0.000 K/mm3 (0.0-0.012); Nucleated Red Blood Cells Perc 0.0 % (0.0-0.2); Platelet Count Result 184 k/mm3 (150-375); Red Blood Count 4.98 M/mm3 (4.6-6.20); White Blood Count 6.8 K/mm3 (4.5-10.0)
[2025-01-08 17:52] LABS: Alanine Aminotransferase 33 U/L (6-50); Albumin Level 4.5 g/dL (3.5-5.1); Alkaline Phosphatase 72 U/L (38-126); Anion Gap 8 mmol/L (4-12); Aspartate Amino Transferase 30 U/L (17-59); Bilirubin,Total 0.7 mg/dL (0.2-1.3); Blood Urea Nitrogen 11 mg/dL (9-20); Calcium 8.9 mg/dL (8.4-10.2); Carbon Dioxide 26 mmol/L (22-30); Chloride 104 mmol/L (98-107); Estimated CRCL calculation 115 ml/min; Estimated Glomerular Filt Rate > 60; Glucose 81 mg/dL (65-110); Potassium 3.8 mmol/L (3.4-5.0); Sodium 138 mmol/L (137-145); Total Protein 7.7 g/dL (6.3-8.2)
[2025-01-08 17:58] LABS: INR 1.0; Prothrombin Time 13.0 Seconds (11.1-14.7)
[2025-01-08 17:59] LABS: Partial Thromboplastin Time 24.7 Seconds (22.3-36.8)
[2025-01-08 18:03] LABS: Troponin I < 0.012 ng/mL (0.000-0.034)
[2025-01-08 18:17] LABS: Influenza A QL RT-PCR Negative (Negative); Influenza B QL RT-PCR Negative (Negative); RSV RNA, RT-PCR Negative (Negative); SARS-CoV-2 RNA PCR Negative (Negative)
== END 2025-01-08 20:21 | disposition home or self-care (01) ==
PROVIDERS: Registered Nurse; Emergency Provider Physician Assistant
DX: R06.00 Dyspnea, unspecified (principal); Z20.822 Contact with and (suspected) exposure to COVID-19
CPT/HCPCS: 36415; 71046; 80053; 84484; 85025; 85380; 85610; 85730; 87637; 93005; 99284